=== PATIENT | female | born 1985 | race African-American/Black ===

== ENCOUNTER → 2016-12-29 | Outpatient (CLI) | payer SELFPAY ==
[~2016-12-29] MED LIST: AMLODIPINE-BEN1 EAC3 PO; ORUDIS75 M1 PO; PAIN RELIEVER500 M4 PO
== END | disposition home or self-care (01) ==
LOC: CBAR 09:51
DX: E66.01 Morbid (severe) obesity due to excess calories (principal)
CPT/HCPCS: 76000